=== PATIENT | male | born 1965 | race Caucasian/White ===

== ENCOUNTER 2016-08-27 08:31 | Emergency (ER) | payer BC ==
[2016-08-27 09:09] VITALS: BP 130/81
--- NOTE | 2016-08-27 09:29 | UC ---
Shoulder Pain HPI - HPI Summary HPI Summary: 51 yo male awoke about 4 AM . Had left shoulder pain and numb fingers No CP or SOB no neck pain two days ago he remove metal roof had to repetatively lift left arm over head supporting metal panel - History of Current Complaint Chief Complaint: UCUpperExtremity Stated Complaint: LEFT SHOULDER INJURY Time Seen by Provider: 08/27/16 09:19 Hx Obtained From: Patient Onset/Duration: Gradual Onset, Lasting Hours Timing: Constant Severity Initially: Mild Severity Currently: Mild Location Of Pain: Is Discrete @ - see image Pain Intensity: 4 Pain Scale Used: 0-10 Numeric Character: Dull, Aching Aggravating Factor(s): Movement Alleviating Factor(s): Rest Associated Signs And Symptoms: Positive: Numbness/Tingling Related History: Dominant Hand Right - Allergies/Home Medications Allergies/Adverse Reactions: Allergies Allergy/AdvReac Type Severity Reaction Status Date / Time No Known Allergies Allergy Verified 08/27/16 08:38 Home Medications: Home Medications Oxbile 1 cap PO TID PRN 08/27/16 [History] PMH/Surg Hx/FS Hx/Imm Hx Previously Healthy: Yes - Surgical History Surgical History: Yes Surgery Procedure, Year, and Place: [facility] - Family History Known Family History: Positive: Cardiac Disease, Diabetes, Other - pt adopted but knows some of his biologic father's medical hx - Social History Alcohol Use: Occasionally Alcohol Amount: 1-3 Substance Use Type: None Substance Use Comment - Amount & Last Used: 4 cups a day till a month ago Smoking Status (MU): Smoker, Current Status Unknown Type: Cigars Amount Used/How Often: 1 cigar during season Have You Smoked in the Last Year: No - Immunization History Most Recent Influenza Vaccination: no Most Recent Tetanus Shot: Dec 2003 Most Recent Pneumonia Vaccination: never Review of Systems Constitutional: Negative Skin: Negative Eyes: Negative ENT: Negative Respiratory: Negative Cardiovascular: Negative Gastrointestinal: Negative Genitourinary: Negative Motor: Negative Neurovascular: Negative Musculoskeletal: Arthralgia Neurological: Negative Psychological: Negative All Other Systems Reviewed And Are Negative: Yes Physical Exam Triage Information Reviewed: Yes Appearance: Well-Appearing, No Pain Distress, Well-Nourished Vital Signs: Initial Vital Signs Temp 98.7 F 08/27/16 08:42 Pulse 90 08/27/16 08:42 Resp 14 08/27/16 08:42 BP 130/81 08/27/16 08:42 Pulse Ox 98 08/27/16 08:42 Vital Signs Reviewed: Yes Eyes: Positive: Conjunctiva Clear ENT: Positive: Hearing grossly normal. Negative: Nasal congestion, Nasal drainage, Trismus, Muffled/hoarse voice Neck: Positive: Supple, Nontender Respiratory: Positive: Lungs clear, Normal breath sounds, No respiratory distress, No accessory muscle use Cardiovascular: Positive: RRR, No Murmur, Pulses Normal Musculoskeletal: Positive: ROM Intact, No Edema, Other: - see image Neurological: Positive: Alert Psychological Exam: Normal Skin Exam: Normal Diagnostics - EKG Cardiac Rate: NL Cardiac Rhythm: Sinus: Normal Ectopy: None ST Segment: Normal Shoulder Course/Dx - Differential Dx/Diagnosis Provider Diagnoses: left shoulder strain Discharge - Discharge Plan Condition: Stable Disposition: HOME Patient Education Materials: Shoulder Pain (ED) Referrals: Ryley Butler MD [Medical Doctor] - Additional Instructions: activity as tolerated ice twice daily aleve 1-2 twice daily recheck with your MD or orthopedist if not improving Images Front/Back of Body, Lg ([place]): 1 - tender here, Full ROM but hurts to hold left arm out in front
== END 2016-08-27 09:36 | disposition home or self-care (01) ==
LOC: UCCORT 08:31
DX: S46.912A Strain of unspecified muscle, fascia and tendon at shoulder and upper arm level, left arm, initial encounter (principal); X58.XXXA Exposure to other specified factors, initial encounter; Y93.9 Activity, unspecified; Y92.9 Unspecified place or not applicable; Z90.49 Acquired absence of other specified parts of digestive tract; Z72.0 Tobacco use
CPT/HCPCS: 93005; 99212; G0463